=== PATIENT | male | born 1950 | race Caucasian/White ===

== ENCOUNTER → 2016-12-29 | Outpatient (CLI) | payer MEDICARE, OTHER ==
[~2016-12-29] MED LIST: ASPIR 8181 MG PO; ELAVIL 50 MG TA50 MG PO; FERROUS SULFAT325 MG PO; FINASTERIDE5 MG PO; FLOMAX 0.4 MG0.4 MG PO; HYDROCODON-ACE1 EAC6 PO; IBUPROFEN800 MG PO; JANUMET 50-1,01 EACH PO; KLONOPIN TAB 00.5 MG PO; LISINOPRIL40 MG PO; METOPROLOL SUCC50 MG PO; OMEPRAZOLE40 MG PO; PERCOCET 5-3251 EACH PO; PHENYTOIN50 MG PO; PRAVASTATIN SOD80 MG PO; SINGULAIR10 MG PO
[2016-12-29 10:36] LABS: HEMOGLOBIN 14.4 gm/dl (14.0-17.5); RED BLOOD COUNT 4.66 M/UL (4.20-5.50); WHITE BLOOD COUNT 7.2 K/UL (4.5-11.0)
[2016-12-29 10:53] LABS: BUN/CREATININE RATIO 13 (0-10)
== END ==
LOC: OPSV2 09:30
PROVIDERS: Anesthesiology
DX: Z01.810 Encounter for preprocedural cardiovascular examination (principal); Z01.812 Encounter for preprocedural laboratory examination; M65.342 Trigger finger, left ring finger; I10 Essential (primary) hypertension; I25.10 Atherosclerotic heart disease of native coronary artery without angina pectoris; Z90.81 Acquired absence of spleen
CPT/HCPCS: 36415; 80048; 85027; 93005

== ENCOUNTER → 2017-01-06 | Day surgery (SDC) | payer MEDICARE, OTHER | END | disposition home or self-care (01) | LOC: OR 09:01 | PROVIDERS: Orthopaedic Surgery | PROC: 0LN80ZZ Release Left Hand Tendon, Open Approach (ICD-10-PCS; principal; 2017-01-06 14:15) | DX: M65.342 Trigger finger, left ring finger (principal); I10 Essential (primary) hypertension; K21.9 Gastro-esophageal reflux disease without esophagitis; E78.5 Hyperlipidemia, unspecified; J45.909 Unspecified asthma, uncomplicated; E11.9 Type 2 diabetes mellitus without complications; N40.0 Benign prostatic hyperplasia without lower urinary tract symptoms; I25.10 Atherosclerotic heart disease of native coronary artery without angina pectoris; M19.90 Unspecified osteoarthritis, unspecified site; Z90.49 Acquired absence of other specified parts of digestive tract; Z95.5 Presence of coronary angioplasty implant and graft; Z79.891 Long term (current) use of opiate analgesic; Z79.899 Other long term (current) drug therapy; F17.210 Nicotine dependence, cigarettes, uncomplicated | CPT/HCPCS: 82962; J2250; J3010; J7030; J7120 ==